=== PATIENT | female | born 2000 | race Caucasian/White ===

== ENCOUNTER 2021-02-20 15:11 | Outpatient (REF) | payer OTHER, MEDICAID, SELFPAY ==
--- NOTE | ~2021-02-20 | XR_ITS ---
EXAMINATION: X-RAYS SCOLIOSIS SURVEY, LUMBAR SPINE X-RAY AND CERVICAL SPINE X-RAY CLINICAL INFORMATION: Back pain COMPARISON: Chest x-ray October 2018 TECHNIQUE: Standing AP view of the spine, 4 views of the lumbar spine and 5 views of the cervical spine FINDINGS: Standing AP view: There is mild curvature of the midthoracic spine to the right with apex at T5-T6. This measures approximately 8 degrees. This is similar to previous chest x-ray October 2018. Alignment is otherwise normal. No fracture or dislocation or bone lesion is seen. Paraspinal soft tissues are normal. Lumbar spine: Bone alignment is normal. No fracture or dislocation is seen. Disc spaces are normal. Facet joints are normal. No pars defect is seen. Cervical spine: Bone alignment is normal. No fracture or dislocation is seen. Disc spaces are normal. Neural foramen are patent. Prevertebral soft tissues are normal. XR/XR cervical spine 4V IMPRESSION: Mild curvature of the mid thoracic spine to the right measuring approximately 8 degrees with apex at T5-T6. Otherwise unremarkable exam.
--- NOTE | ~2021-02-20 | XR_ITS ---
EXAMINATION: X-RAYS SCOLIOSIS SURVEY, LUMBAR SPINE X-RAY AND CERVICAL SPINE X-RAY CLINICAL INFORMATION: Back pain COMPARISON: Chest x-ray October 2018 TECHNIQUE: Standing AP view of the spine, 4 views of the lumbar spine and 5 views of the cervical spine FINDINGS: Standing AP view: There is mild curvature of the midthoracic spine to the right with apex at T5-T6. This measures approximately 8 degrees. This is similar to previous chest x-ray October 2018. Alignment is otherwise normal. No fracture or dislocation or bone lesion is seen. Paraspinal soft tissues are normal. Lumbar spine: Bone alignment is normal. No fracture or dislocation is seen. Disc spaces are normal. Facet joints are normal. No pars defect is seen. Cervical spine: Bone alignment is normal. No fracture or dislocation is seen. Disc spaces are normal. Neural foramen are patent. Prevertebral soft tissues are normal. XR/XR lumbar spine 4V min IMPRESSION: Mild curvature of the mid thoracic spine to the right measuring approximately 8 degrees with apex at T5-T6. Otherwise unremarkable exam.
--- NOTE | ~2021-02-20 | XR_ITS ---
EXAMINATION: X-RAYS SCOLIOSIS SURVEY, LUMBAR SPINE X-RAY AND CERVICAL SPINE X-RAY CLINICAL INFORMATION: Back pain COMPARISON: Chest x-ray October 2018 TECHNIQUE: Standing AP view of the spine, 4 views of the lumbar spine and 5 views of the cervical spine FINDINGS: Standing AP view: There is mild curvature of the midthoracic spine to the right with apex at T5-T6. This measures approximately 8 degrees. This is similar to previous chest x-ray October 2018. Alignment is otherwise normal. No fracture or dislocation or bone lesion is seen. Paraspinal soft tissues are normal. Lumbar spine: Bone alignment is normal. No fracture or dislocation is seen. Disc spaces are normal. Facet joints are normal. No pars defect is seen. Cervical spine: Bone alignment is normal. No fracture or dislocation is seen. Disc spaces are normal. Neural foramen are patent. Prevertebral soft tissues are normal. XR/XR scoliosis survey IMPRESSION: Mild curvature of the mid thoracic spine to the right measuring approximately 8 degrees with apex at T5-T6. Otherwise unremarkable exam.
== END 2021-02-20 15:12 | disposition home or self-care (01) ==
LOC: HO.XRAY 15:11
PROVIDERS: PCP Nurse Practitioner; Visit Provider Emergency Medicine
DX: M54.5 Low back pain (principal); M54.9 Dorsalgia, unspecified
CPT/HCPCS: 72050; 72081; 72082; 72110

== ENCOUNTER 2021-07-26 11:37 | Outpatient (REF) | payer MEDICAID, SELFPAY ==
--- NOTE | ~2021-07-26 | XR_ITS ---
EXAMINATION: XR PELVIS CLINICAL INFORMATION: Mild COMPARISON: None TECHNIQUE: AP view of the pelvis. FINDINGS: The bones and soft tissues are normal. No fracture. Sacroiliac and hip joints are normal. Pubic symphysis is normal. No abnormal soft tissue calcifications. XR/XR pelvis 1-2V IMPRESSION: Normal pelvis.
== END 2021-07-26 11:38 | disposition home or self-care (01) ==
LOC: HO.XRAY 11:37
PROVIDERS: Absent Provider Nurse Practitioner; PCP Nurse Practitioner; Visit Provider Emergency Medicine
DX: M79.18 Myalgia, other site (principal)
CPT/HCPCS: 72170

== ENCOUNTER 2022-05-03 12:09 | Outpatient (REF) | payer MEDICAID, SELFPAY ==
--- NOTE | ~2022-05-03 | XR_ITS ---
EXAMINATION: XR SCOLIOSIS CLINICAL INFORMATION: Scoliosis COMPARISON: None TECHNIQUE: A single view of the thoracolumbar spine is obtained. FINDINGS: There are no intrinsic vertebral anomalies. There is a mild right convex curvature of the midthoracic spine, apex at T7, measuring 9 degrees, previously 8 degrees.. There is no significant pelvic tilt. Risser 5. XR/XR scoliosis survey IMPRESSION: Unchanged mild spinal asymmetry without scoliosis.
== END 2022-05-03 12:10 | disposition home or self-care (01) ==
LOC: HO.XRAY 12:09
PROVIDERS: Visit Provider Emergency Medicine
DX: M41.9 Scoliosis, unspecified (principal)
CPT/HCPCS: 72082

== ENCOUNTER 2022-09-03 09:23 | Emergency (ER) | payer OTHER, SELFPAY ==
--- NOTE | ~2022-09-03 | XR_ITS ---
EXAMINATION: XR FOOT, LEFT CLINICAL INFORMATION: Injury. Pain. COMPARISON: None TECHNIQUE: AP, lateral, and oblique views of the left foot. FINDINGS: The bones and soft tissues are normal. No fracture. Alignment is anatomic. Joint spaces are maintained. XR/XR foot LT 2V IMPRESSION: Normal left foot.
[2022-09-03 09:52] VITALS: BP 142/81; PULSE 77; RESP 16; TEMP 36.9; O2SAT 98; BMI 34.9
--- NOTE | 2022-09-03 10:12 | ED.LOWEXIN ---
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 Patient reports initially no pain but yesterday she started to develop pain. No numbness, tingling, weakness, swelling. Related Data Allergies Allergy/AdvReac Type Severity Reaction Status Date / Time No Known Allergies Allergy Unverified 08/11/20 19:36 [No Known Allergies*] Review of Systems Review of Systems: Yes all other systems are reviewed and are negative Constitutional: Constitutional: Reports no additional constitutional complaints, Denies body ache(s), Denies chills, Denies fever(s), Denies headache(s) and Denies weakness Eyes: Eyes: Reports no additional eye complaints and Denies change in vision ENT: Reports system reviewed and no additional complaints, except as documented, Denies dizziness, Denies headache(s), Denies nasal congestion, Denies nasal discharge and Denies neck pain Cardiovascular: Cardiovascular: Reports no additional cardiovascular complaints, Denies chest pain, Denies leg edema and Denies dyspnea Respiratory: Respiratory: Reports no additional respiratory complaints, Denies cough and Denies dyspnea Gastrointestinal: Gastrointestinal: Reports no additional gastrointestinal complaints, Denies abdominal pain, Denies diarrhea, Denies nausea and Denies vomiting Genitourinary: Genitourinary: Reports no additional female genitourinary complaints and Denies urinary incontinence Musculoskeletal: Musculoskeletal: Reports no additional musculoskeletal complaints, Denies back pain, Reports arthralgias, Reports joint swelling, Denies neck pain, Denies numbness and Denies tingling Integumentary/Breasts: Skin/Breast: Reports system reviewed and no additional complaints, except as docu and Denies rash Neurologic: Reports system reviewed and no additional complaints, except as documented, Denies Abnormal speech present, Denies dizziness, Denies headache(s), Denies numbness, Denies tingling and Denies weakness PMFSH Past Medical History Attestation statement: The following information was validated with the patient. Source: old records reviewed and nursing notes reviewed Social History Social History Advance Directives: No Advance Directives Information Provided: No Physical Exam Vital Signs: Vital Signs: Last Vital Signs Temp 98.5 F 09/03/22 09:52 Pulse 77 09/03/22 09:52 Resp 16 09/03/22 09:52 BP 142/81 H 09/03/22 09:52 Pulse Ox 98 09/03/22 09:52 O2 Del Method 09/03/22 09:52 BMI result Body Mass Index 34.9 Const: General: cooperative, healthy appearing, comfortable and no acute distress Orientation/consciousness: patient oriented x3 Limitations: no limitations HEENT: Head: Yes normal to inspection Ears: hearing grossly normal bilaterally General nose exam: Normal external nose present Face and sinus: Yes normal facial exam Mouth: Normal oral and palatal mucosa present Throat: Yes posterior oropharynx normal Eyes: General: appearance normal, both eyes and all related structures Pupils: Equal, round and reactive pupils present Neck: Neck: Yes normal visual inspection Chest: Chest palpation & inspection: normal inspection of the chest Resp: Effort & Inspection: normal respiratory effort Auscultation: clear to auscultation bilaterally Cardio: Rate: regular rate Rhythm: regular rhythm Peripheral pulses: Peripheral pulses 2+ throughout GI: Inspection: Yes normal to inspection Palpation (GI): Soft to palpation and nontender Auscultation: normal bowel sounds Back/Spine/Pelvis: Thoracic/Lumbar Spine: thoracic and lumbar spine normal to inspection Skin: General skin exam: no rashes or lesions noted Neuro: General: patient oriented x3, no focal motor deficits and normal sensation to monofilament Cranial nerves: Yes Equal, round and reactive pupils present Cognition (Neuro): normal cognition Speech: No Abnormal speech present Gait exam (Neuro): Normal gait present Motor exam (neuro): 5/5 motor strength present throughout Extrem: Other: Over the left lateral foot there is slight swelling and tenderness along the 5th MTP. No ankle pain. FROM of foot. NV intact distally. 2+ DP and PT pulses General: Yes normal to inspection Course Course Course Narrative: X-ray show no bony abnormality. Likely sprain. Patient will be placed in a postoperative shoe and given crutches for ambulation. Reviewed rice. Reviewed worrisome signs and symptoms and when to return to the emergency room. Comfortable discharge home. MDM - Extremity Injury (Lower) MDM Narrative Medical decision making narrative: 21-year-old female who presents with left foot pain after an inversion injury which occurred while working 1 week ago. Patient has tenderness and pain over the left 5th MTP. Will check x-rays Medical Records Attestation: I reviewed the patient's medical records. Lab Data Attestation: I reviewed the patient's lab results. Imaging Data foot x-ray: Attestation: I personally reviewed and interpreted this imaging study as follows: Radiologist's impression: [address] [address] XRay Report Signed Patient: Rachael Dorantes MR#: [id number] : 11/23/1962 Acct:[id number] Age/Sex: 59 / F ADM Date: 09/03/22 Loc: HO.ED Attending Dr: Ordering Physician: Jayne Calvo NP Date of Service: 09/03/22 Procedure(s): XR shoulder LT min 2V Accession Number(s): [id number] cc: Jayne Calvo NP~ EXAMINATION: XR SHOULDER, LEFT CLINICAL INFORMATION: Fall. Pain.? COMPARISON: None? TECHNIQUE: AP external rotation, Grashey, scapular Y, and axillary views of the left shoulder. FINDINGS: The bones and soft tissues are normal. No fracture. Glenohumeral and acromioclavicular alignment is anatomic with normal joint space. No abnormal soft tissue calcifications.? XR/XR shoulder LT min 2V IMPRESSION: Normal left shoulder. Procedures Procedure Narrative Procedure Narrative: post-op shoe, crutches Discharge Plan Discharge Clinical Impression: Sprain of foot, left Patient Disposition: Home, Self-Care Instructions: Foot Sprain (ED) Additional Instructions: Las radiograf?as de abad pie no muestran anomal?as ?seas. Use el calzado posoperatorio y las muletas yumi los pr?ximos d?as hasta que pueda soportar peso sin sentir dolor. [place] el pie. Aplicar hielo. [place] Motrin o Tylenol para el dolor seg?n sea necesario Referrals: Cecilia Cruz [Primary Care Provider] - 1 week (as needed) Stand Alone Forms: Work/School Release Interventions: ED Discharge Assessment Last Done: 09/03/22 11:02 Discharge Date/Time: 09/03/22 11:03 Print Language: Haitian
== END 2022-09-03 11:03 | disposition home or self-care (01) ==
PROVIDERS: Emergency Provider Student in an Organized Health Care Education/Training Program; PCP Nurse Practitioner
DX: S93.602A Unspecified sprain of left foot, initial encounter (principal); X50.1XXA Overexertion from prolonged static or awkward postures, initial encounter; Y93.9 Activity, unspecified; Y92.9 Unspecified place or not applicable; Y99.9 Unspecified external cause status
CPT/HCPCS: 73620; 99283

== ENCOUNTER 2023-03-12 11:12 | Emergency (ER) | payer MEDICAID, SELFPAY ==
[2023-03-12 11:40] VITALS: BP 147/78; PULSE 74; RESP 16; TEMP 36.9; O2SAT 98; BMI 37.0
--- NOTE | 2023-03-12 11:40 | ED.GENADULT ---
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 She reports she is 12 days early for her menstrual cycle. She reports having irregular menstrual cycle since April of last year. She has heavy bleeding every cycle. She is not on any oral contraceptive pills. She does not have an OBGYN. She denies chance of . She denies any vaginal discharge. She has menstrual cramping associated with her vaginal bleeding. No vomiting, fevers. <BIRD Ocampo - Last Filed: 03/12/23 16:30> MD complaint: Heavy vaginal <BIRD Ocampo Last Filed: 03/12/23 16:30> Onset (ago): hour(s) <BIRD Ocampo Last Filed: 03/12/23 16:30> Location: genitals <BIRD Ocampo Last Filed: 03/12/23 16:30> Radiation: non-radiation <BIRD Ocampo Last Filed: 03/12/23 16:30> Severity: moderate <BIRD Ocampo Last Filed: 03/12/23 16:30> Quality: aching and other (Cramping) <BIRD Ocampo Last Filed: 03/12/23 16:30> Pain Consistency: intermittent <BIRD Ocampo Last Filed: 03/12/23 16:30> Relieving factors: none <BIRD Ocampo Last Filed: 03/12/23 16:30> Exacerbating factors: none <BIRD Ocampo Last Filed: 03/12/23 16:30> Associated symptoms: denies other symptoms <BIRD Ocampo Last Filed: 03/12/23 16:30> Treatments prior to arrival: none <BIRD Ocampo - Last Filed: 03/12/23 16:30> Related Data Allergies/adverse reactions: Allergies Allergy/AdvReac Type Severity Reaction Status Date / Time No Known Allergies Allergy Unverified 08/11/20 19:36 [No Known Allergies*] <BIRD Wagoner - Last Filed: 03/12/23 11:42> Review of Systems Review of Systems: Yes all other systems are reviewed and are negative <BIRD Ocampo Last Filed: 03/12/23 16:30> [facility] Social History Social History: Social History Advance Directives: No Advance Directives Information Provided: No <BIRD Wagoner Last Filed: 03/12/23 11:42> Physical Exam ED Vital Signs: Vital Signs - 24 hr 03/12/23 11:40 Temperature 98.4 F Pulse Rate 74 Respiratory Rate 16 Blood Pressure 147/78 H Pulse Oximetry 98 Oxygen Delivery Method Room Air BMI result Body Mass Index 37.0 <BIRD Wagoner Last Filed: 03/12/23 11:42> Vital Signs - 24 hr 03/12/23 11:40 Temperature 98.4 F Pulse Rate 74 Respiratory Rate 16 Blood Pressure 147/78 H Pulse Oximetry 98 Oxygen Delivery Method Room Air BMI result Body Mass Index 37.0 <BIRD Ocampo Last Filed: 03/12/23 16:30> Appearance: Alert. Oriented X3. No acute distress. Head: normocephalic, atraumatic. Eyes: Pupils equal, round and reactive to light. ENT: Pharynx normal. No tonsillar swelling or exudate. Neck: Normal inspection. Neck supple. CVS: Normal heart rate and rhythm. Pulses normal. Respiratory: No respiratory distress. Breath sounds normal. Abdomen: Obese, Soft and nontender. +BS x4 Pelvic: moderate amount of dark red blood in the vaginal canal, cervical os is normal, closed, no active bleeding. no vaginal discharge Skin: Skin warm and dry. Normal skin color. Normal skin turgor. No rashes. Extremities: No lower extremity edema. No joint swelling. Neuro/psych: Oriented X 3. No motor deficit. No sensory deficit. Normal speech and cognition. <BIRD Ocampo - Last Filed: 03/12/23 16:30> Course Course Course Narrative: This is an RME: Additional HPI, ROS, PE not included below will be deferred to primary provider. This is a 22-year-old female presenting to the emergency department for evaluation of heavy vaginal bleeding since this morning, according to patient she has been having heavy irregular periods since April, she called her OBGYN which advised her to come into the emergency department for further evaluation and treatment. She does not think she is . Slight suprapubic abdominal pain. Reports going through 2 pads per hour since this morning. Physical exam patient well-appearing vital signs stable. Pulse rate 66, 99% on room air. This is likely menometrorrhagia Plan at this time labs. <BIRD Wagoner - Last Filed: 03/12/23 11:42> Medical Decision Making Medical Decision Making MDM Narrative: [age] female presenting to the ER for evaluation of dysfunctional uterine bleeding, irregular periods since April. H&H is stable. No active hemorrhaging on examination. We discussed possible initiation of oral contraceptive pills today to help with her symptoms however she would like to wait and talk with OBGYN about other options that are not oral. She is hemodynamically stable. She does not have any symptomatic anemia. Anemis is mild and increased from prior. agency sales director used to discuss diagnosis, management and treatment. 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 <BIRD Ocampo - Last Filed: 03/12/23 16:30> Differential Diagnosis Differential Diagnoses: The differential diagnosis associated with the presentation includes <BIRD Ocampo Last Filed: 03/12/23 16:30> menorrhagia, dysfunctional uterine bleeding. menometorrhagia, <BIRD Ocampo - Last Filed: 03/12/23 16:30> Lab Data MDM Lab Attestation statement: I reviewed the patient's lab results. <BIRD Ocampo - Last Filed: 03/12/23 16:30> Stable anemia <BIRD Ocampo - Last Filed: 03/12/23 16:30> Result Diagrams: 03/12/23 13:05 03/12/23 13:05 <BIRD Wagoner - Last Filed: 03/12/23 11:42> Labs: Lab Results 03/12/23 03/12/23 03/12/23 Range/Units 13:05 13:05 13:05 WBC 7.7 (4.8-10.8) X10*3/uL RBC 4.40 (4.20-5.50) X10*6/uL Hgb 11.7 L (12.0-16.0) g/dl Hct 36.6 L (37.0-47.0) % MCV 83.2 (80.0-98.0) fL MCH 26.6 L (27.0-33.0) pg MCHC 32.0 (31.0-35.0) g/dl RDW 12.7 (11.0-16.0) % Plt Count 303 (160-400) X10*3/uL MPV 10.5 (9.4-12.3) fL Immature Gran % (Auto) 0.1 (0.0-0.4) % Neut % (Auto) 69.8 (45-73) % Lymph % (Auto) 22.6 (20-40) % Sierra % (Auto) 6.1 (2-11) % Eos % (Auto) 1.0 (0-4) % Baso % (Auto) 0.4 (0-2) % Lymph # (Auto) 1.7 (1.2-4.9) X10*3/uL Sierra # (Auto) 0.5 (0.1-1.2) X10*3/uL Eos # (Auto) 0.1 (0.0-0.4) X10*3/uL Baso # (Auto) 0.0 (0.0-0.2) X10*3/uL Abs Immat Gran (auto) 0.01 (0.00-0.03) X10*3/uL Absolute Neuts (auto) 5.3 (2.0-8.3) x10*3/uL Absolute Nucleated RBC 0.000 (0.0-0.012) X10*3/uL Nucleated RBC % (auto) 0.0 (0.0-0.2) /100WBC Sodium 138 (135-145) mmol/L Potassium 4.2 (3.3-5.1) mmol/L Chloride 107 (96-108) mmol/L Carbon Dioxide 23 (22-29) mmol/L Anion Gap 12 (12-20) BUN 12 (9-16) mg/dL Creatinine 0.73 (0.5-1.4) mg/dL Estim Creat Clear Calc 109.0 Estimated GFR > 60 Random Glucose 91 (60-115) mg/dL Calcium 9.3 (8.4-10.2) mg/dL Magnesium 1.8 (1.6-2.6) mg/dL Total Bilirubin 0.3 (0.0-1.0) mg/dL AST 19 (5-31) U/L ALT 24 (0-31) U/L Alkaline Phosphatase 60 (39-117) U/L Total Protein 7.4 (6.5-8.0) g/dL Albumin 4.5 (3.5-5.0) g/dL Beta HCG, Quant < 2 mIU/mL Urine Test (NEGATIVE) COVID-19 ([facility]) Negative (Negative) COVID-19 Clin Com See Note 03/12/23 Range/Units 13:05 WBC (4.8-10.8) X10*3/uL RBC (4.20-5.50) X10*6/uL Hgb (12.0-16.0) g/dl Hct (37.0-47.0) % MCV (80.0-98.0) fL MCH (27.0-33.0) pg MCHC (31.0-35.0) g/dl RDW (11.0-16.0) % Plt Count (160-400) X10*3/uL MPV (9.4-12.3) fL Immature Gran % (Auto) (0.0-0.4) % Neut % (Auto) (45-73) % Lymph % (Auto) (20-40) % Sierra % (Auto) (2-11) % Eos % (Auto) (0-4) % Baso % (Auto) (0-2) % Lymph # (Auto) (1.2-4.9) X10*3/uL Sierra # (Auto) (0.1-1.2) X10*3/uL Eos # (Auto) (0.0-0.4) X10*3/uL Baso # (Auto) (0.0-0.2) X10*3/uL Abs Immat Gran (auto) (0.00-0.03) X10*3/uL Absolute Neuts (auto) (2.0-8.3) x10*3/uL Absolute Nucleated RBC (0.0-0.012) X10*3/uL Nucleated RBC % (auto) (0.0-0.2) /100WBC Sodium (135-145) mmol/L Potassium (3.3-5.1) mmol/L Chloride (96-108) mmol/L Carbon Dioxide (22-29) mmol/L Anion Gap (12-20) BUN (9-16) mg/dL Creatinine (0.5-1.4) mg/dL Estim Creat Clear Calc Estimated GFR Random Glucose (60-115) mg/dL Calcium (8.4-10.2) mg/dL Magnesium (1.6-2.6) mg/dL Total Bilirubin (0.0-1.0) mg/dL AST (5-31) U/L ALT (0-31) U/L Alkaline Phosphatase (39-117) U/L Total Protein (6.5-8.0) g/dL Albumin (3.5-5.0) g/dL Beta HCG, Quant mIU/mL Urine Test NEGATIVE (NEGATIVE) COVID-19 ([facility]) (Negative) COVID-19 Clin Com <BIRD Wagoner - Last Filed: 03/12/23 11:42> Lab Results 03/12/23 03/12/23 03/12/23 Range/Units 13:05 13:05 13:05 WBC 7.7 (4.8-10.8) X10*3/uL RBC 4.40 (4.20-5.50) X10*6/uL Hgb 11.7 L (12.0-16.0) g/dl Hct 36.6 L (37.0-47.0) % MCV 83.2 (80.0-98.0) fL MCH 26.6 L (27.0-33.0) pg MCHC 32.0 (31.0-35.0) g/dl RDW 12.7 (11.0-16.0) % Plt Count 303 (160-400) X10*3/uL MPV 10.5 (9.4-12.3) fL Immature Gran % (Auto) 0.1 (0.0-0.4) % Neut % (Auto) 69.8 (45-73) % Lymph % (Auto) 22.6 (20-40) % Sierra % (Auto) 6.1 (2-11) % Eos % (Auto) 1.0 (0-4) % Baso % (Auto) 0.4 (0-2) % Lymph # (Auto) 1.7 (1.2-4.9) X10*3/uL Sierra # (Auto) 0.5 (0.1-1.2) X10*3/uL Eos # (Auto) 0.1 (0.0-0.4) X10*3/uL Baso # (Auto) 0.0 (0.0-0.2) X10*3/uL Abs Immat Gran (auto) 0.01 (0.00-0.03) X10*3/uL Absolute Neuts (auto) 5.3 (2.0-8.3) x10*3/uL Absolute Nucleated RBC 0.000 (0.0-0.012) X10*3/uL Nucleated RBC % (auto) 0.0 (0.0-0.2) /100WBC Sodium 138 (135-145) mmol/L Potassium 4.2 (3.3-5.1) mmol/L Chloride 107 (96-108) mmol/L Carbon Dioxide 23 (22-29) mmol/L Anion Gap 12 (12-20) BUN 12 (9-16) mg/dL Creatinine 0.73 (0.5-1.4) mg/dL Estim Creat Clear Calc 109.0 Estimated GFR > 60 Random Glucose 91 (60-115) mg/dL Calcium 9.3 (8.4-10.2) mg/dL Magnesium 1.8 (1.6-2.6) mg/dL Total Bilirubin 0.3 (0.0-1.0) mg/dL AST 19 (5-31) U/L ALT 24 (0-31) U/L Alkaline Phosphatase 60 (39-117) U/L Total Protein 7.4 (6.5-8.0) g/dL Albumin 4.5 (3.5-5.0) g/dL Beta HCG, Quant < 2 mIU/mL Urine Test (NEGATIVE) COVID-19 ([facility]) Negative (Negative) COVID-19 Clin Com See Note 03/12/23 Range/Units 13:05 WBC (4.8-10.8) X10*3/uL RBC (4.20-5.50) X10*6/uL Hgb (12.0-16.0) g/dl Hct (37.0-47.0) % MCV (80.0-98.0) fL MCH (27.0-33.0) pg MCHC (31.0-35.0) g/dl RDW (11.0-16.0) % Plt Count (160-400) X10*3/uL MPV (9.4-12.3) fL Immature Gran % (Auto) (0.0-0.4) % Neut % (Auto) (45-73) % Lymph % (Auto) (20-40) % Sierra % (Auto) (2-11) % Eos % (Auto) (0-4) % Baso % (Auto) (0-2) % Lymph # (Auto) (1.2-4.9) X10*3/uL Sierra # (Auto) (0.1-1.2) X10*3/uL Eos # (Auto) (0.0-0.4) X10*3/uL Baso # (Auto) (0.0-0.2) X10*3/uL Abs Immat Gran (auto) (0.00-0.03) X10*3/uL Absolute Neuts (auto) (2.0-8.3) x10*3/uL Absolute Nucleated RBC (0.0-0.012) X10*3/uL Nucleated RBC % (auto) (0.0-0.2) /100WBC Sodium (135-145) mmol/L Potassium (3.3-5.1) mmol/L Chloride (96-108) mmol/L Carbon Dioxide (22-29) mmol/L Anion Gap (12-20) BUN (9-16) mg/dL Creatinine (0.5-1.4) mg/dL Estim Creat Clear Calc Estimated GFR Random Glucose (60-115) mg/dL Calcium (8.4-10.2) mg/dL Magnesium (1.6-2.6) mg/dL Total Bilirubin (0.0-1.0) mg/dL AST (5-31) U/L ALT (0-31) U/L Alkaline Phosphatase (39-117) U/L Total Protein (6.5-8.0) g/dL Albumin (3.5-5.0) g/dL Beta HCG, Quant mIU/mL Urine Test NEGATIVE (NEGATIVE) COVID-19 ([facility]) (Negative) COVID-19 Clin Com <BIRD Ocampo Last Filed: 03/12/23 16:30> External Record Review External record reviewed: Prior outpatient labs <BIRD Ocampo Last Filed: 03/12/23 16:30> Tests considered The following testing was considered but not selected: considered pelvic u/s but not emergent to be done today <BIRD Ocampo Last Filed: 03/12/23 16:30> Prescription Management I considered prescription management with: Other (OPC) <BIRD Ocampo Last Filed: 03/12/23 16:30> patient decline and would like to talk to WHEAT COMBINE DRIVER about all of the treatment options <BIRD Ocampo Last Filed: 03/12/23 16:30> Chronic Conditions Patient?s care impacted by: Other (obesity) <BIRD Ocampo Last Filed: 03/12/23 16:30> Critical Care Time Critical Care Time Critical Care Time: No <BIRD Ocampo Last Filed: 03/12/23 16:30> Discharge Plan Discharge Clinical Impression: Menometrorrhagia <BIRD Wagoner - Last Filed: 03/12/23 11:42> Patient Disposition: Home, Self-Care <BIRD Wagoner - Last Filed: 03/12/23 11:42> Instructions: Menorrhagia (ED), Dysfunctional Uterine Bleeding (ED) <BIRD Wagoner - Last Filed: 03/12/23 11:42> Additional Instructions: Your blood work showed mild stable anemia, hemoglobin of 11.7 g/dl Recommend following up with oil well fishing tool technician for options on treatment of your heavy vaginal bleeding Call oil well fishing tool technician for an appointment - name and number below If you develop new or worsening symptoms call 911 or come back to the ER for further evaluation. Dao an?lisis de ismael mostr? anemia leve estable, hemoglobina de 11,7 g/dl Recomiende hacer un seguimiento con un obstetra/ginec?logo para conocer las opciones de tratamiento de dao sangrado vaginal abundante. Llame a oil well fishing tool technician para dale constantin - nombre y n?silvana a continuaci?n Si desarrolla s?ntomas nuevos o que empeoran, llame al 911 o regrese a la casimiro de emergencias para dale evaluaci?n adicional. <BIRD Wagoner - Last Filed: 03/12/23 11:42> Referrals: [facility] [place] [facility] [Provider Group] ([facility]) Cecilia Cruz [Primary Care Provider] - <BIRD Wagoner - Last Filed: 03/12/23 11:42> Print Language: Barbadian <BIRD Wagoner - Last Filed: 03/12/23 11:42>
[2023-03-12 13:14] LABS: MANUAL DIFF FLAG NO
[2023-03-12 13:17] LABS: Basophils Percent Auto 0.4 % (0-2); Eosinophils Absolute Auto 0.1 X10*3/uL (0.0-0.4); Hematocrit 36.6 % (37.0-47.0); Hemoglobin 11.7 g/dl (12.0-16.0); Imm Gran Abs Auto 0.01 X10*3/uL (0.00-0.03); Imm Gran Pct Auto 0.1 % (0.0-0.4); Lymphocytes Absolute Auto 1.7 X10*3/uL (1.2-4.9); Lymphocytes Percent Auto 22.6 % (20-40); Mean Corpuscular Hemoglobin 26.6 pg (27.0-33.0); Mean Corpuscular Volume 83.2 fL (80.0-98.0); Mean Platelet Volume 10.5 fL (9.4-12.3); Monocytes Absolute Auto 0.5 X10*3/uL (0.1-1.2); Monocytes Percent Auto 6.1 % (2-11); Neutrophils Absolute Auto 5.3 x10*3/uL (2.0-8.3); Neutrophils Percent Auto 69.8 % (45-73); Platelet Count 303 X10*3/uL (160-400); Red Cell Distribution Width 12.7 % (11.0-16.0); White Blood Count 7.7 X10*3/uL (4.8-10.8)
[2023-03-12 13:20] LABS: UPreg QC Valid YES; Urine Pregnancy NEGATIVE (NEGATIVE)
[2023-03-12 13:33] LABS: COVID-19 Test Negative (Negative); IDNOW Serial# 08D9AD1C
[2023-03-12 13:45] LABS: Alanine Aminotransferase 24 U/L (0-31); Albumin Level 4.5 g/dL (3.5-5.0); Alkaline Phosphatase 60 U/L (39-117); Anion Gap 12 (12-20); Aspartate Amino Transferase 19 U/L (5-31); Bilirubin Total 0.3 mg/dL (0.0-1.0); Blood Urea Nitrogen 12 mg/dL (9-16); Calcium 9.3 mg/dL (8.4-10.2); Carbon Dioxide 23 mmol/L (22-29); Chloride 107 mmol/L (96-108); Estimated Glomerular Filt Rate > 60; Glucose Random 91 mg/dL (60-115); Magnesium 1.8 mg/dL (1.6-2.6); Potassium 4.2 mmol/L (3.3-5.1); Sodium 138 mmol/L (135-145); Total Protein 7.4 g/dL (6.5-8.0)
[2023-03-12 13:48] LABS: HCG Quantitative < 2 mIU/mL
== END 2023-03-12 16:35 | disposition home or self-care (01) ==
PROVIDERS: Physician Assistant; Emergency Provider Emergency Medicine Emergency Medical Services; PCP Nurse Practitioner
DX: N92.1 Excessive and frequent menstruation with irregular cycle (principal); Z20.822 Contact with and (suspected) exposure to COVID-19
CPT/HCPCS: 80053; 81025; 83735; 84702; 85025; 87635; 99282; 99283